=== PATIENT | male | born 1990 | race African-American/Black ===

== ENCOUNTER 2020-11-28 14:45 | Emergency (ER) | payer MEDICAID ==
[~2020-11-28] VITALS: Ht 172.7 cm; Wt 59.0 kg
[2020-11-28] MEDS ORDERED: DIAZEPAM 5 MG TABLET PO ONE (15:15)
[2020-11-28] MEDS ORDERED: KETOROLAC 60MG/2ML VIAL IM ONE (15:15)
[2020-11-28] MEDS ORDERED: IBUPROFEN 600MG TABLET PO ONE (15:45)
[2020-11-28 15:50] VITALS: BP 124/76
== END 2020-11-28 16:17 | disposition home or self-care (01) ==
LOC: ER 14:45
DX: S09.8XXA Other specified injuries of head, initial encounter (principal); M54.2 Cervicalgia; M54.5 Low back pain; M54.6 Pain in thoracic spine; G89.11 Acute pain due to trauma; R03.0 Elevated blood-pressure reading, without diagnosis of hypertension; V49.59XA Passenger injured in collision with other motor vehicles in traffic accident, initial encounter; Y93.89 Activity, other specified; Y92.488 Other paved roadways as the place of occurrence of the external cause
CPT/HCPCS: 72070; 72100; 99284; J1885

== ENCOUNTER 2021-02-10 23:52 | Emergency (ER) | payer MEDICAID, OTHER ==
[~2021-02-10] VITALS: Ht 180.3 cm; Wt 73.0 kg
[2021-02-11] MEDS ORDERED: KETOROLAC 30MG/ML VIAL IM ONE (00:15)
[2021-02-11] MEDS ORDERED: METOCLOPRAMIDE HCL 10MG TABLET PO ONE (00:15)
[2021-02-11] MEDS ORDERED: DIPHENHYDRAMINE 25MG CAPSULE PO ONE (00:15)
[2021-02-11] MEDS ORDERED: HYDROCODONE/ACETAMINOPHEN 5/325MG TABLET PO ONE (01:00)
[2021-02-11 03:24] VITALS: BP 111/66
[2021-02-11] MEDS ORDERED: ASPI-964 PO (03:48)
== END 2021-02-11 03:57 | disposition home or self-care (01) ==
LOC: ER 23:52
DX: R51.9 Headache, unspecified (principal)
CPT/HCPCS: 70450; 96372; 99284; J1885; J8597; Q0163

== ENCOUNTER 2022-07-30 07:58 | Inpatient (IN) | payer MEDICAID ==
[~2022-07-30] VITALS: Ht 180.3 cm; Wt 54.9 kg
[~2022-07-30 07:58] MED LIST: ASPI1TAB8 PO
[2022-07-30 08:13] LABS: BASOPHILS % 0.5 % (0.0-2.0); EOSINOPHILS % 0.2 % (0.0-5.0); HEMATOCRIT. 45.4 % (42.0-52.0); HEMOGLOBIN. 14.4 g/dL (14.0-18.0); LYMPHOCYTES % 19.9 % (20.0-50.0); MEAN CORPUSCULAR HEMOGLOBIN 24.7 pg (28.0-32.0); MEAN PLATELET VOLUME 8.2 fl (7.4-10.4); MONOCYTES % 8.3 % (2.0-8.0); NEUTROPHILS % 71.1 % (40.0-76.0); PLATELET 295 x1000/uL (130-400); RED BLOOD CELL COUNT 5.82 mill/uL (4.7-6.1); RED CELL DISTRIBUTION WIDTH 16.2 % (11.6-14.6)
[2022-07-30 08:19] LABS: CHLORIDE 102 mEq/L (98-107)
[2022-07-30] MEDS ORDERED: SODIUM CHLORIDE 0.9% 1000ML BAG (SEPSIS BOLUS) IV ONE (08:30)
[2022-07-30] MEDS ORDERED: PIPERACILLIN/TAZ 3.375G PREMIX 50 ML IV ONE (08:45)
[2022-07-30] MEDS ORDERED: VANCOMYCIN 1G PREMIX 200 ML IV ONE (08:45)
[2022-07-30 09:10] LABS: BG BASE EXCESS -3.7 mmol/L (-2.0-2.0); BG CARBOXYHEMOGLOBIN 2.3 % (0.5-1.5); BG DEOXYHEMOGLOBIN 2.4 % (0.0-5.0); BG HCO3 ACT 23.4 mmol/L (22.0-26.0); BG METHEMOGLOBIN 0.3 % (0.0-1.5); BG OXYGEN SATURATION 97.5 % (92.0-98.5); BG PCO2 50.9 mmHg (35.0-45.0); BG PH 7.281 (7.350-7.450); BG TOTAL HEMOGLOBIN 13.6 g/dL (12.0-18.0)
[2022-07-30] MEDS ORDERED: ONDANSETRON HCL 4MG/2ML INJ IV PRN (09:45)
[2022-07-30 09:51] LABS: CLARITY URINE CLOUDY (CLEAR); COLOR URINE YELLOW (YELLOW); KETONES URINE 1+ (NEGATIVE); LEUKOCYTE ESTERASE URINE 1+ (NEGATIVE); NITRITE URINE POSITIVE (NEGATIVE); OCCULT BLOOD URINE NEGATIVE (NEGATIVE); PH URINE 6.5 (4.5-8.0); PROTEIN URINE 3+ (NEGATIVE)
[2022-07-30] MEDS: ENOXAPARIN 40MG/0.4ML SYR SUBCUT SCH (10:37)
[2022-07-30] MEDS: SODIUM CHLORIDE 0.9% 1,000 ML IV SCH ×2 (10:38→19:13)
[2022-07-30 14:00] VITALS: BP 126/68
[2022-07-30] MEDS ORDERED: PIPERACILLIN/TAZOBACTAM 3.375 G in DEXTROSE 5% WATER 50 ML IV SCH (14:00)
[2022-07-30 14:52] VITALS: BP 117/57
[2022-07-30] MEDS: IPRATROPIUM BROMIDE (0.02%) 0.5MG/2.5ML NEB HHN SCH ×2 (15:11→20:44)
[2022-07-30] MEDS: PIPERACILLIN/TAZOBACTAM 3.375 G in DEXTROSE 5% WATER 50 ML IV SCH ×2 (15:32→21:10)
[2022-07-30 15:45] VITALS: BP 135/85
[2022-07-30 16:15] LABS: BG BASE EXCESS 1.2 mmol/L (-2.0-2.0); BG CARBOXYHEMOGLOBIN 0.9 % (0.5-1.5); BG DEOXYHEMOGLOBIN 1.9 % (0.0-5.0); BG FRACTION INSPIRED OXYGEN 60; BG HCO3 ACT 25.3 mmol/L (22.0-26.0); BG METHEMOGLOBIN 0.4 % (0.0-1.5); BG OXYGEN SATURATION 98.1 % (92.0-98.5); BG OXYHEMOGLOBIN 96.8 % (94.0-97.0); BG PCO2 38.7 mmHg (35.0-45.0); BG PH 7.434 (7.350-7.450); BG PO2 97.6 mmHg (75.0-100.0); BG SAMPLE SITE RIGHT RADIAL; BG TOTAL HEMOGLOBIN 13.5 g/dL (12.0-18.0); BG TOTAL RESPIRATORY RATE 32 b/min; BG VENT MODE MASK - BIPAP
[2022-07-30 18:00] VITALS: BP 128/68
[2022-07-30 18:25] LABS: *AMPHETAMINES SCREEN URINE NEGATIVE (NEGATIVE); *BARBITURATES SCREEN URINE NEGATIVE (NEGATIVE); *BENZODIAZEPINES SCREEN URINE NEGATIVE (NEGATIVE); *COCAINE SCREEN URINE NEGATIVE (NEGATIVE); CANNABINOID URINE SCREEN PRESUMTIVE POSITIVE (NEGATIVE); METHADONE URINE SCREEN NEGATIVE (NEGATIVE); OPIATES URINE SCREEN NEGATIVE (NEGATIVE); PHENCYCLIDINE URINE SCREEN NEGATIVE (NEGATIVE)
[2022-07-30 22:00] VITALS: BP 147/70
[2022-07-31] VITALS (10 sets, daily range): BP systolic 120–164; BP diastolic 56–80
[2022-07-31] MEDS: IPRATROPIUM BROMIDE (0.02%) 0.5MG/2.5ML NEB HHN SCH ×2 (02:28→08:26)
[2022-07-31] MEDS: PIPERACILLIN/TAZOBACTAM 3.375 G in DEXTROSE 5% WATER 50 ML IV SCH ×3 (05:38→20:40)
[2022-07-31] MEDS: ACETAMINOPHEN 650MG/20.3ML UDC PO PRN ×2 (08:00→09:18)
[2022-07-31] MEDS ORDERED: FAMOTIDINE 20MG TABLET PO SCH (09:00)
[2022-07-31] MEDS: ENOXAPARIN 40MG/0.4ML SYR SUBCUT SCH (10:07)
[2022-07-31] MEDS: SODIUM CHLORIDE 0.9% 1,000 ML IV SCH (11:54)
[2022-07-31] MEDS: IPRATROPIUM/ALBUTEROL 0.5-3(2.5)MG/3ML NEB HHN SCH ×2 (14:08→20:19)
[2022-07-31 16:45] LABS: CHLORIDE 101 mEq/L (98-107)
[2022-07-31 16:52] LABS: BASOPHILS % 0.5 % (0.0-2.0); EOSINOPHILS % 0.4 % (0.0-5.0); HEMATOCRIT. 35.8 % (42.0-52.0); HEMOGLOBIN. 11.8 g/dL (14.0-18.0); LYMPHOCYTES % 18.9 % (20.0-50.0); MEAN CORPUSCULAR HEMOGLOBIN 24.9 pg (28.0-32.0); MEAN CORPUSCULAR VOLUME 75.7 fL (80.0-94.0); MEAN PLATELET VOLUME 8.7 fl (7.4-10.4); MONOCYTES % 9.5 % (2.0-8.0); NEUTROPHILS % 70.7 % (40.0-76.0); PLATELET 200 x1000/uL (130-400); RED BLOOD CELL COUNT 4.73 mill/uL (4.7-6.1)
[2022-07-31] MEDS ORDERED: POTASSIUM CHLORIDE 20MEQ/PACKET PO NR (17:00)
[2022-07-31] MEDS ORDERED: POTASSIUM CHLORIDE 20MEQ TABLET SR PO ONE (17:00)
[2022-07-31] MEDS ORDERED: THROAT LOZENGES-BENZOCAINE/MENTH/CETYLPYRD CL LOZENGES MM PRN (20:00)
[2022-07-31] MEDS: FAMOTIDINE 20MG TABLET PO SCH (20:40)
[2022-08-01] VITALS (9 sets, daily range): BP systolic 123–138; BP diastolic 59–79
[2022-08-01] MEDS: IPRATROPIUM/ALBUTEROL 0.5-3(2.5)MG/3ML NEB HHN SCH ×2 (01:09→06:00)
[2022-08-01] MEDS: SODIUM CHLORIDE 0.9% 1,000 ML IV SCH ×2 (01:45→17:16)
[2022-08-01] MEDS: PIPERACILLIN/TAZOBACTAM 3.375 G in DEXTROSE 5% WATER 50 ML IV SCH ×2 (05:54→14:37)
[2022-08-01] MEDS: ENOXAPARIN 40MG/0.4ML SYR SUBCUT SCH (09:21)
[2022-08-01] MEDS: FAMOTIDINE 20MG TABLET PO SCH (09:22)
[2022-08-01 10:45] LABS: BASOPHILS % 0.7 % (0.0-2.0); EOSINOPHILS % 2.1 % (0.0-5.0); HEMATOCRIT. 34.1 % (42.0-52.0); LYMPHOCYTES % 28.8 % (20.0-50.0); MEAN CORPUSCULAR HEMOGLOBIN 24.4 pg (28.0-32.0); MEAN CORPUSCULAR VOLUME 75.7 fL (80.0-94.0); MEAN PLATELET VOLUME 9.3 fl (7.4-10.4); MONOCYTES % 12.3 % (2.0-8.0); NEUTROPHILS % 56.1 % (40.0-76.0); PLATELET 184 x1000/uL (130-400); RED BLOOD CELL COUNT 4.51 mill/uL (4.7-6.1); RED CELL DISTRIBUTION WIDTH 15.8 % (11.6-14.6)
[2022-08-01 10:57] LABS: CHLORIDE 102 mEq/L (98-107)
[2022-08-01] MEDS ORDERED: POTASSIUM CHLORIDE 20MEQ TABLET SR PO NR (13:15)
[2022-08-01] MEDS ORDERED: LEVO500T90 MT ×2 (14:30)
[2022-08-01] MEDS ORDERED: SULF1TAB48 MT (16:49)
[2022-08-01] MEDS ORDERED: CITRIC ACID/SODIUM CITRATE SOLN 30ML UDC PO NR (17:30)
== END 2022-08-01 18:00 | disposition home or self-care (01) | DRG 720 ==
LOC: ER 08:10 → 5EST 09:04 → EDBEDREQ 09:07 → EDBEDREQTM 09:07 → ENRESERV 12:22 → 5EST 13:40
PROVIDERS: ADMIT Family Medicine Adult Medicine; ATTEND Family Medicine Adult Medicine
PROC: 02HV33Z Insertion of Infusion Device into Superior Vena Cava, Percutaneous Approach (ICD-10-PCS; principal; 2022-07-30)
PROC: B548ZZA Ultrasonography of Superior Vena Cava, Guidance (ICD-10-PCS; 2022-07-30)
PROC: 5A09357 Assistance with Respiratory Ventilation, Less than 24 Consecutive Hours, Continuous Positive Airway Pressure (ICD-10-PCS; 2022-07-30)
DX: A41.9 Sepsis, unspecified organism (principal); J96.02 Acute respiratory failure with hypercapnia; G93.40 Encephalopathy, unspecified; E87.29 Other acidosis; N39.0 Urinary tract infection, site not specified; E83.52 Hypercalcemia; G82.20 Paraplegia, unspecified; E87.6 Hypokalemia; F12.90 Cannabis use, unspecified, uncomplicated; F17.210 Nicotine dependence, cigarettes, uncomplicated; R65.20 Severe sepsis without septic shock; Z74.01 Bed confinement status
CPT/HCPCS: 36415; 36573; 36600; 71045; 80048; 80053; 80305; 81003; 82375; 82805; 83605; 83880; 84145; 84484; 85025; 85379; 93005; 93970; 94640; 94660; 99291; C1725; J1650; J2543; J3370; J7030; J7060

== ENCOUNTER 2023-01-25 10:10 | Inpatient (IN) | payer MEDICAID ==
[~2023-01-25] VITALS: Ht 182.9 cm; Wt 50.9 kg
[~2023-01-25 10:10] MED LIST changes: +SULF1TAB48 MT
[2023-01-25] MEDS ORDERED: SODIUM CHLORIDE 0.9% 1,000 ML IV ONE ×3 (10:45→23:45)
[2023-01-25 10:58] LABS: BASOPHILS % 0.9 % (0.0-2.0); HEMATOCRIT. 50.5 % (42.0-52.0); HEMOGLOBIN. 16.7 g/dL (14.0-18.0); LYMPHOCYTES % 33.8 % (20.0-50.0); MEAN CORPUSCULAR HEMOGLOBIN 26.3 pg (28.0-32.0); MEAN CORPUSCULAR VOLUME 79.7 fL (80.0-94.0); MEAN PLATELET VOLUME 8.8 fl (7.4-10.4); MONOCYTES % 6.5 % (2.0-8.0); NEUTROPHILS % 56.8 % (40.0-76.0); PLATELET 208 x1000/uL (130-400); RED BLOOD CELL COUNT 6.33 mill/uL (4.7-6.1); RED CELL DISTRIBUTION WIDTH 16.8 % (11.6-14.6)
[2023-01-25 11:20] LABS: CHLORIDE 107 mEq/L (98-107)
[2023-01-25] MEDS ORDERED: VANCOMYCIN 1GM PMX (XELLIA) 200 ML IV SCH (11:30)
[2023-01-25] MEDS ORDERED: CEFEPIME 1,000 MG in DEXTROSE 5% WATER 50 ML IV SCH (11:30)
[2023-01-25] MEDS ORDERED: VANCOMYCIN 1G PREMIX 200 ML IV SCH (12:30)
[2023-01-25] MEDS ORDERED: HYDRALAZINE 20MG/ML VIAL IV PRN (14:15)
[2023-01-25] MEDS ORDERED: ONDANSETRON HCL 4MG/2ML INJ IV ONE (17:15)
[2023-01-25 18:19] LABS: CLARITY URINE CLOUDY (CLEAR); COLOR URINE YELLOW (YELLOW); KETONES URINE NEGATIVE (NEGATIVE); LEUKOCYTE ESTERASE URINE 2+ (NEGATIVE); NITRITE URINE NEGATIVE (NEGATIVE); OCCULT BLOOD URINE NEGATIVE (NEGATIVE); PROTEIN URINE NEGATIVE (NEGATIVE); SPECIFIC GRAVITY URINE 1.008 (1.005-1.030); UROBILINOGEN URINE 0.2 E.U./dL (0.2-1.0)
[2023-01-26] VITALS (87 sets, daily range): BP systolic 69–174; BP diastolic 36–105
[2023-01-26] MEDS ORDERED: MORPHINE SULFATE 2 MG/ML CPJ (NOT FOR IM USE) IV PRN (03:45)
[2023-01-26] MEDS ORDERED: HYDROCODONE/ACETAMINOPHEN 5/325MG TABLET PO PRN (03:45)
[2023-01-26] MEDS: SODIUM CHLORIDE 0.9% 250 ML IV NR ×2 (03:58→04:22)
[2023-01-26] MEDS ORDERED: NOREPINEPHRINE 8 MG in DEXT 5% WATER 242 ML IV PRN (04:00)
[2023-01-26] MEDS ORDERED: PHENYLEPHRINE 50 MG in DEXT 5% WATER 245 ML IV PRN (04:00)
[2023-01-26] MEDS ORDERED: NALOXONE HCL 0.4MG/ML VIAL IV PRN (04:00)
[2023-01-26 06:14] LABS: HEMATOCRIT 40.4 % (42.0-52.0); HEMOGLOBIN 13.6 g/dL (14.0-18.0); MEAN CORPUSCULAR HEMOGLOBIN 26.5 pg (28.0-32.0); MEAN CORPUSCULAR VOLUME 78.7 fL (80.0-94.0); PLATELET 190 x1000/uL (130-400); RED BLOOD CELL COUNT 5.14 mill/uL (4.7-6.1); RED CELL DISTRIBUTION WIDTH 16.3 % (11.6-14.6)
[2023-01-26 06:29] LABS: CHLORIDE 104 mEq/L (98-107)
[2023-01-26] MEDS ORDERED: BISACODYL 10MG SUPP PR PRN (09:30)
[2023-01-26] MEDS ORDERED: CEFTRIAXONE 1GM PREMIX 50 ML IV SCH (09:30)
[2023-01-26] MEDS ORDERED: ONDANSETRON HCL 4MG/2ML INJ IV PRN (09:30)
[2023-01-26] MEDS: CEFTRIAXONE 1,000 MG in DEXTROSE 5% WATER 50 ML IV SCH (10:30)
[2023-01-26] MEDS: MIDODRINE HCL 5MG TABLET PO SCH ×3 (10:31→18:12)
[2023-01-26] MEDS: ENOXAPARIN 30MG/0.3ML SYR SUBCUT SCH (10:32)
[2023-01-26] MEDS ORDERED: VANCOMYCIN 1G PREMIX 200 ML IV NR (12:00)
[2023-01-26] MEDS ORDERED: AZITHROMYCIN 500 MG TABLET PO NR (13:00)
[2023-01-26] MEDS: VANCOMYCIN 750MG PREMIX 150 ML IV SCH (20:58)
[2023-01-27] VITALS (42 sets, daily range): BP systolic 95–181; BP diastolic 41–103
[2023-01-27] MEDS: VANCOMYCIN 750MG PREMIX 150 ML IV SCH ×2 (05:19→13:11)
[2023-01-27 06:01] LABS: EOSINOPHILS % 2.7 % (0.0-5.0); HEMATOCRIT. 35.4 % (42.0-52.0); HEMOGLOBIN. 11.7 g/dL (14.0-18.0); LYMPHOCYTES % 56.9 % (20.0-50.0); MEAN CORPUSCULAR HEMOGLOBIN 25.8 pg (28.0-32.0); MEAN CORPUSCULAR VOLUME 77.7 fL (80.0-94.0); MEAN PLATELET VOLUME 9.5 fl (7.4-10.4); MONOCYTES % 8.4 % (2.0-8.0); PLATELET 159 x1000/uL (130-400); RED BLOOD CELL COUNT 4.55 mill/uL (4.7-6.1); RED CELL DISTRIBUTION WIDTH 16.2 % (11.6-14.6)
[2023-01-27 06:09] LABS: CHLORIDE 104 mEq/L (98-107)
[2023-01-27] MEDS: MIDODRINE HCL 5MG TABLET PO SCH (09:18)
[2023-01-27] MEDS: ENOXAPARIN 30MG/0.3ML SYR SUBCUT SCH (09:19)
[2023-01-27] MEDS: AZITHROMYCIN 250 MG TABLET PO SCH (09:19)
[2023-01-27] MEDS ORDERED: IPRATROPIUM/ALBUTEROL 0.5-3(2.5)MG/3ML NEB HHN PRN (09:30)
[2023-01-27] MEDS: CEFTRIAXONE 1,000 MG in DEXTROSE 5% WATER 50 ML IV SCH (10:09)
[2023-01-27] MEDS ORDERED: ALBUTEROL (0.083%) 2.5MG/3ML NEB HHN PRN (16:45)
[2023-01-27] MEDS ORDERED: IPRATROPIUM BROMIDE (0.02%) 0.5MG/2.5ML NEB HHN PRN (16:45)
[2023-01-27] MEDS ORDERED: VANCOMYCIN 750MG PREMIX 150 ML IV SCH (23:00)
[2023-01-28 00:05] VITALS: BP 127/49
[2023-01-28 04:00] VITALS: BP 100/52
[2023-01-28 07:58] VITALS: BP 95/52
[2023-01-28] MEDS: AZITHROMYCIN 250 MG TABLET PO SCH (08:36)
[2023-01-28] MEDS: ENOXAPARIN 30MG/0.3ML SYR SUBCUT SCH (08:37)
[2023-01-28] MEDS: CEFTRIAXONE 1,000 MG in DEXTROSE 5% WATER 50 ML IV SCH (10:59)
[2023-01-28 12:00] VITALS: BP 99/67
== END 2023-01-28 15:10 | disposition home or self-care (01) | DRG 720 ==
LOC: ER 10:10 → 3WST 13:16 → EDBEDREQ 15:25 → CVICU 01-26 03:13 → 4WST 01-27 16:26
PROVIDERS: ADMIT Internal Medicine; ATTEND Internal Medicine
DX: A41.9 Sepsis, unspecified organism (principal); R65.21 Severe sepsis with septic shock; E87.20 Acidosis, unspecified; T68.XXXA Hypothermia, initial encounter; J18.9 Pneumonia, unspecified organism; G82.20 Paraplegia, unspecified; D64.9 Anemia, unspecified; N39.0 Urinary tract infection, site not specified; N31.9 Neuromuscular dysfunction of bladder, unspecified; L84 Corns and callosities; Z74.01 Bed confinement status; X31.XXXA Exposure to excessive natural cold, initial encounter
CPT/HCPCS: 36415; 71045; 80048; 80202; 81003; 83605; 84145; 85025; 85027; 93970; 99291; J0360; J0692; J0696; J1650; J2405; J3370; J7030; J7060

== ENCOUNTER 2023-02-22 16:49 | Emergency (ER) | payer MEDICAID ==
[~2023-02-22] VITALS: Ht 177.8 cm; Wt 55.0 kg
[2023-02-22 16:59] VITALS: BP 143/92
== END 2023-02-22 22:41 | disposition home or self-care (01) ==
LOC: ER 16:49
DX: J02.9 Acute pharyngitis, unspecified (principal); D64.9 Anemia, unspecified
CPT/HCPCS: 99283

== ENCOUNTER 2023-07-25 20:17 | Emergency (ER) | payer MEDICAID ==
[~2023-07-25] VITALS: Ht 182.9 cm; Wt 52.0 kg
[2023-07-25 21:03] VITALS: O2SAT 100
[2023-07-26] MEDS ORDERED: METOCLOPRAMIDE HCL 10MG/2ML VIAL IV ONE (00:15)
[2023-07-26] MEDS ORDERED: DIPHENHYDRAMINE 50MG/ML VIAL IV ONE (00:15)
[2023-07-26] MEDS ORDERED: METO-293 MT (02:18)
[2023-07-26] MEDS ORDERED: ACET-2708 MT (02:18)
[2023-07-26 09:39] VITALS: BP 94/52; PULSE 62; RESP 12; TEMP 98.5
[2023-07-27] MEDS ORDERED: IBUP-2029 MT (06:28)
[2023-07-27] MEDS ORDERED: T3 PO (06:28)
[2023-07-27] MEDS ORDERED: NITR-87 MT (09:36)
== END 2023-07-26 09:43 | disposition home or self-care (01) ==
LOC: ER 20:17
DX: G43.909 Migraine, unspecified, not intractable, without status migrainosus (principal); F17.200 Nicotine dependence, unspecified, uncomplicated; Z79.899 Other long term (current) drug therapy
CPT/HCPCS: 99285; 96374; 96375; Z7610 ×3; J1200; J2765

== ENCOUNTER 2023-07-27 03:26 | Emergency (ER) | payer MEDICAID ==
[~2023-07-27] VITALS: Ht 172.7 cm; Wt 42.0 kg
[~2023-07-27 03:26] MED LIST changes: +ACET-2708 MT; +METO-293 MT
[2023-07-27 03:30] VITALS: O2SAT 100
[2023-07-27] MEDS ORDERED: MORPHINE SULFATE 4 MG/ML CPJ (NOT FOR IM USE) IV ONE (03:30)
[2023-07-27] MEDS ORDERED: METOCLOPRAMIDE HCL 10MG/2ML VIAL IV ONE (03:30)
[2023-07-27 03:52] LABS: BASOPHILS % 1.1 % (0.0-2.0); DIFFERENTIAL COMMENT 0; EOSINOPHILS % 2.6 % (0.0-5.0); HEMATOCRIT. 39.9 % (42.0-52.0); HEMOGLOBIN. 13.6 g/dL (14.0-18.0); LYMPHOCYTES % 57.9 % (20.0-50.0); MEAN CORPUSCULAR HEMOGLOBIN 26.8 pg (28.0-32.0); MEAN CORPUSCULAR VOLUME 78.9 fL (80.0-94.0); MEAN PLATELET VOLUME 9.1 fl (7.4-10.4); MONOCYTES % 7.5 % (2.0-8.0); NEUTROPHILS % 30.9 % (40.0-76.0); PLATELET 160 x1000/uL (130-400); RED BLOOD CELL COUNT 5.06 mill/uL (4.7-6.1); RED CELL DISTRIBUTION WIDTH 17.1 % (11.6-14.6); WHITE BLOOD COUNT 5.9 x1000/uL (4.5-11.0)
[2023-07-27 04:02] LABS: CHLORIDE 107 mEq/L (98-107); INDEX HEMOLYSI 1 (1-3); INDEX ICTERIC 1 (1-4); INDEX LIPEMIC 1 (1-3); POTASSIUM 3.5 mEq/L (3.5-5.1); SODIUM 138 mEq/L (136-145)
[2023-07-27 04:13] LABS: ALANINE AMINOTRANSFERASE 27 IU/L (13-61); ALBUMIN 3.7 g/dL (3.4-5.0); ASPARTATE AMINOTRANSFERASE 14 IU/L (15-37); BILIRUBIN TOTAL 1.1 mg/dL (0.1-1.0); CALCIUM 8.6 mg/dL (8.5-10.1); CARBON DIOXIDE 26 mEq/L (21-32); CREATININE 0.6 mg/dL (0.6-1.3); GLUCOSE 85 mg/dL (70-105); NT PRO B-TYPE NATRIURETIC PEP 283 pg/mL (5-125); PROTEIN TOTAL 7.2 g/dL (6.0-8.3); TROPONIN I HIGH SENSITIVITY 21 ng/L (<78); UREA NITROGEN BLOOD 24 mg/dL (7-21)
[2023-07-27] MEDS ORDERED: IBUP-2029 MT (06:28)
[2023-07-27] MEDS ORDERED: T3 PO (06:28)
[2023-07-27] MEDS ORDERED: SODIUM CHLORIDE 0.9% 1,000 ML IV SCH (06:30)
[2023-07-27] MEDS ORDERED: ACETAMINOPHEN 325MG TABLET PO PRN ×2 (06:30)
[2023-07-27] MEDS ORDERED: CLONIDINE 0.1MG TABLET PO PRN (06:30)
[2023-07-27] MEDS ORDERED: IPRATROPIUM/ALBUTEROL 0.5-3(2.5)MG/3ML NEB NEB PRN (06:30)
[2023-07-27] MEDS ORDERED: GUAIFENESIN 200MG/10ML SUGAR FREE UDC PO PRN (06:30)
[2023-07-27] MEDS ORDERED: ONDANSETRON HCL 4MG/2ML INJ IV PRN (06:30)
[2023-07-27] MEDS ORDERED: DOCUSATE SODIUM 100MG CAPSULE PO PRN (06:30)
[2023-07-27] MEDS ORDERED: IBUPROFEN 600MG TABLET PO PRN (06:30)
[2023-07-27] MEDS ORDERED: MAGNESIUM/ALUMINUM HYDROXIDE/SIMETHICONE 30ML UDC PO PRN (06:30)
[2023-07-27 06:43] LABS: CLARITY URINE CLEAR (CLEAR); COLOR URINE DARK YELLOW (YELLOW); GLUCOSE URINE NEGATIVE (NEGATIVE); KETONES URINE 2+ (NEGATIVE); LEUKOCYTE ESTERASE URINE 1+ (NEGATIVE); NITRITE URINE POSITIVE (NEGATIVE); OCCULT BLOOD URINE TRACE (NEGATIVE); PH URINE 5.5 (4.5-8.0); PROTEIN URINE TRACE (NEGATIVE)
[2023-07-27 07:05] LABS: *AMPHETAMINES SCREEN URINE NEGATIVE (NEGATIVE); *BARBITURATES SCREEN URINE NEGATIVE (NEGATIVE); *BENZODIAZEPINES SCREEN URINE NEGATIVE (NEGATIVE); *COCAINE SCREEN URINE NEGATIVE (NEGATIVE); CANNABINOID URINE SCREEN PRESUMTIVE POSITIVE (NEGATIVE); ECSTASY MDMA SCREEN URINE NEGATIVE (NEGATIVE); OPIATES URINE SCREEN PRESUMTIVE POSITIVE (NEGATIVE); PHENCYCLIDINE URINE SCREEN NEGATIVE (NEGATIVE)
[2023-07-27 07:13] LABS: SQUAMOUS EPITHELIAL CELL URINE FEW /lpf (RARE/1+)
[2023-07-27 07:15] LABS: BACTERIA URINE 2+; RBC URINE 0-2 /hpf (0-2)
[2023-07-27] MEDS ORDERED: FAMOTIDINE 20MG/2ML VIAL IV SCH (09:00)
[2023-07-27] MEDS ORDERED: NITR-87 MT (09:36)
[2023-07-27] MEDS ORDERED: NITROFURANTOIN 100MG M/M CAPSULE PO NR (09:45)
[2023-07-27] MEDS ORDERED: HYDROCODONE/ACETAMINOPHEN 10/325MG TABLET PO NR (09:45)
[2023-07-27 11:25] VITALS: BP 108/70; PULSE 68; RESP 12; TEMP 98.2
== END 2023-07-27 11:30 | disposition home or self-care (01) ==
LOC: ER 03:26
DX: G44.209 Tension-type headache, unspecified, not intractable (principal); I49.9 Cardiac arrhythmia, unspecified; R53.2 Functional quadriplegia; Z74.01 Bed confinement status
CPT/HCPCS: 80053; 80305; 81003; 83880; 85025; 87086; 87186; 84484; 87077; 36415; 71045; 70450; 93005; 96374; 96375; 99285; J2765; J2270; Z7610 ×3